=== PATIENT | male | born 1965 | race Caucasian/White ===

== ENCOUNTER → 2021-07-16 | Day surgery (SDC) | payer OTHER ==
[~2021-07-16] VITALS: Ht 175.3 cm; Wt 99.8 kg
[~2021-07-16] MED LIST: LISINOPRIL10 MG PO
== END | disposition home or self-care (01) ==
LOC: FAS 07-09 08:00
DX: Z12.11 Encounter for screening for malignant neoplasm of colon (principal); D12.2 Benign neoplasm of ascending colon; D12.5 Benign neoplasm of sigmoid colon; I10 Essential (primary) hypertension; Z79.899 Other long term (current) drug therapy
CPT/HCPCS: J2704; J7120